=== PATIENT | female | born 1995 | race Caucasian/White ===

== ENCOUNTER 2019-11-13 12:05 | Outpatient (CLI) | payer OTHER, SELFPAY | END 2019-11-13 20:54 | disposition home or self-care (01) | LOC: MLB 12:05 | PROVIDERS: ATTEND Obstetrics & Gynecology | DX: Z11.59 Encounter for screening for other viral diseases (principal) | CPT/HCPCS: U0003-CS ==

== ENCOUNTER 2019-11-29 22:34 | Inpatient (IN) | payer OTHER, SELFPAY ==
[~2019-11-29] VITALS: Ht 149.9 cm; Wt 77.1 kg
[2019-11-29] MEDS: LACTATED RINGERS 1,000 ML IV SCH (07:30)
[2019-11-29] MEDS ORDERED: PNV91TAB8 PO (23:13)
[2019-11-29] MEDS ORDERED: CARBOPROST 250 MCG/ML AMP IM PRN (23:15)
[2019-11-29] MEDS ORDERED: METHYLERGONOVINE 0.2 MG/ML AMP IM PRN (23:15)
[2019-11-29] MEDS ORDERED: OXYTOCIN 10 UNITS/ML VIAL IM SCH (23:15)
[2019-11-30] LABS: BASOPHILS % (AUTO) 0.2 % (0.0-2.0); EOSINOPHILS % (AUTO) 0.3 % (0.0-4.0); HEMATOCRIT 40.9 % (36-48); HEMOGLOBIN 13.8 g/dL (12.0-16.0); LYMPHOCYTES # (AUTO) 1.8 K/uL (2.5-16.5); LYMPHOCYTES % (AUTO) 19.7 % (20.5-51.1); MEAN CORPUSCULAR HEMOGLOBIN 30 pg (27-31); MEAN CORPUSCULAR HGB CONC 34 g/dL (33-37); MONOCYTES # (AUTO) 0.7 K/uL (0.8-1.0); MONOCYTES % (AUTO) 7.3 % (1.7-9.3); NEUTROPHILS # (AUTO) 6.8 K/uL (1.8-7.7); NEUTROPHILS % (AUTO) 72.5 % (42.2-75.2); PLATELET COUNT (AUTO) 190 K/uL (140-450); RED BLOOD CELL COUNT(AUTO) 4.65 MIL/uL (4.20-5.40); RED CELL DISTRIBUTION WIDTH 14.1 % (11.6-13.7); WHITE BLOOD COUNT (AUTO) 9.4 K/uL (4.8-10.8)
[2019-11-30 00:04] LABS: APPEARANCE,URINE SL CLOUDY (CLEAR); BILIRUBIN,URINE NEGATIVE (NEGATIVE); BLOOD, URINE NEGATIVE (NEGATIVE); COLOR,URINE YELLOW (YELLOW); LEUKOCYTE ESTERASE ,URINE 1+ (NEGATIVE); NITRITE, URINE NEGATIVE (NEGATIVE); UGLUCOSE NEGATIVE (NEGATIVE)
[2019-11-30 00:15] LABS: ALBUMIN 2.6 g/dL (3.4-5.0); CARBON DIOXIDE 21.1 mmol/L (21-32); CREATININE 0.6 mg/dL (0.6-1.3); POTASSIUM 4.1 mmol/L (3.5-5.1); TOTAL BILIRUBIN 0.4 mg/dL (0.0-1.0)
[2019-11-30 00:26] LABS: RBC,URINE 0-5 /HPF (0-5); WBC,URINE 20-60 /HPF (0-5)
[2019-11-30] MEDS: MISOPROSTOL 25 MCG TAB VG SCH ×2 (01:51→08:29)
[2019-11-30] MEDS ORDERED: MORPHINE SULFATE 4 MG/ML SYR IVP PRN (06:45)
--- NOTE | 2019-11-30 09:00 | NUR ---
PATIENT HAS BEEN SCREENED AND CATEGORIZED LOW NUTRITION RISK. PATIENT WILL BE SEEN WITHIN 7 DAYS OF ADMISSION. 12/06/[address]
[2019-11-30] MEDS ORDERED: OXYTOCIN 20 UNITS/LR PREMIX 1,000 ML IV ONE (14:33)
[2019-11-30] MEDS ORDERED: OXYTOCIN 20 UNITS in LACTATED RINGERS 1,000 ML IV SCH (14:45)
[2019-11-30] MEDS: LACTATED RINGERS 1,000 ML IV SCH (15:30)
[2019-12-01] MEDS ORDERED: PROMETHAZINE 25 MG/ML VIAL IM PRN (13:45)
[2019-12-01] MEDS ORDERED: MORPHINE SULFATE 10 MG/ML VIAL IVP PRN (13:45)
[2019-12-01] MEDS ORDERED: MORPHINE SULFATE 10 MG/ML VIAL ONE (13:46)
[2019-12-01] MEDS ORDERED: PROMETHAZINE 25 MG/ML VIAL ONE (13:46)
[2019-12-01 13:50] VITALS: BP 108/56
[2019-12-01] MEDS: LACTATED RINGERS 1,000 ML IV SCH (14:52)
[2019-12-01] MEDS ORDERED: ROPIVACAINE 0.2%/NS PREMIX 200 ML EPI ONE (15:23)
[2019-12-01] MEDS ORDERED: OXYTOCIN 20 UNITS/LR PREMIX 1,000 ML IV ONE (18:21)
[2019-12-01] MEDS ORDERED: SIMETHICONE 80 MG TAB.CHEW PO PRN (21:10)
[2019-12-01] MEDS ORDERED: METHYLERGONOVINE 0.2 MG/ML AMP IM PRN (21:10)
[2019-12-01] MEDS ORDERED: MEASLES, MUMPS, AND RUBELLA 1 VIAL SQVAC PRN (21:10)
[2019-12-01] MEDS ORDERED: IBUPROFEN 600 MG TAB PO PRN ×2 (21:10)
[2019-12-01] MEDS ORDERED: DOCUSATE SODIUM 100 MG GELCAP PO PRN (21:10)
[2019-12-01] MEDS ORDERED: METHYLERGONOVINE 0.2 MG TAB PO PRN (21:10)
[2019-12-01] MEDS ORDERED: bisacodyL 5 MG TABEC PO PRN (21:10)
[2019-12-01] MEDS ORDERED: BENZOCAINE/MENTHOL 20%-0.5% 60 GM CAN TP PRN (21:10)
[2019-12-01] MEDS ORDERED: IBUPROFEN 800 MG TAB PO PRN (21:10)
[2019-12-01] MEDS ORDERED: OXYTOCIN 10 UNITS/ML VIAL IM PRN (21:10)
[2019-12-02 10:02] LABS: HEMATOCRIT 38.7 % (36-48); HEMOGLOBIN 12.6 g/dL (12.0-16.0)
== END 2019-12-03 12:35 | disposition home or self-care (01) | DRG 560 ==
LOC: MLD 22:34 → MFCC 12-02 01:55
PROVIDERS: ADMIT Obstetrics & Gynecology; ATTEND Obstetrics & Gynecology
PROC: 10E0XZZ Delivery of Products of Conception, External Approach (ICD-10-PCS; principal; 2019-12-01)
PROC: 00HU33Z Insertion of Infusion Device into Spinal Canal, Percutaneous Approach (ICD-10-PCS; 2019-12-01)
PROC: 3E0R3BZ Introduction of Anesthetic Agent into Spinal Canal, Percutaneous Approach (ICD-10-PCS; 2019-12-01)
PROC: 3E0234Z Introduction of Serum, Toxoid and Vaccine into Muscle, Percutaneous Approach (ICD-10-PCS; 2019-12-03)
PROC: 3E0134Z Introduction of Serum, Toxoid and Vaccine into Subcutaneous Tissue, Percutaneous Approach (ICD-10-PCS; 2019-12-03)
DX: O80 Encounter for full-term uncomplicated delivery (principal); Z3A.39 39 weeks gestation of pregnancy; Z37.0 Single live birth; Z23 Encounter for immunization; Z20.828 Contact with and (suspected) exposure to other viral communicable diseases
CPT/HCPCS: 36415; 51702; 59200; 59409; 76815; 80053; 81001; 85018; 85025; 86592; 86886; 86900; 86901; 87086; 87653-90; 90707; 90715; J2270; J2550; J2590; J2795; J7120; Q0092